=== PATIENT | female | born 1955 | race African-American/Black ===

== ENCOUNTER 2020-04-14 21:22 | Emergency (ER) | payer MEDICARE, MEDICAID | END 2020-04-14 22:20 | disposition home or self-care (01) | LOC: BURERS 21:22 | DX: R11.0 Nausea (principal); I10 Essential (primary) hypertension; F20.0 Paranoid schizophrenia; Z79.899 Other long term (current) drug therapy; Z79.82 Long term (current) use of aspirin | CPT/HCPCS: 99284 ==

== ENCOUNTER 2020-04-28 22:46 | Emergency (ER) | payer MEDICARE, OTHER ==
[2020-04-28 23:40] LABS: Bilirubin Large (Negative); Blood, Urine Trace (Negative); Clarity Slightly Cloudy (Clear); Glucose, Urine (Dipstick) 100 mg/dL (Negative); Ketone, Urine Trace mg/dL (Negative); Leukocyte Negative (Negative); Nitrite Negative (Negative); Protein, Urine (Dipstick) 30 mg/dL (Neg-Trace)
[2020-04-28 23:48] LABS: Hemoglobin 11.4 g/dL (12.0-16.0); Mean Corpuscular HGB CONC 30.5 g/dL (32.0-36.0); Mean Corpuscular Hemoglobin 26.2 pg (27.0-31.0); Mean Corpuscular Volume 86.1 fL (78.0-98.0); Mean Platelet Volume 7.7 fL (7.4-10.4); Platelet Count 324 thou/uL (130-400); RBC Distribution Width 15.7 % (11.5-14.5); Red Blood Cell (RBC) Count 4.34 mill/uL (4.20-5.40); White Blood Cell (WBC) Count 7.7 thou/uL (4.8-10.8)
[2020-04-28 23:51] LABS: Bacteria/HPF 1+ HPF (None Seen); RBC/HPF 0-3 HPF (0-3); Squamous Epithelial 0-3 HPF (0-3); WBC/HPF 0-3 HPF (0-3)
[2020-04-28 23:56] LABS: ALT (SGPT) 102 U/L (8-55); AST (SGOT) 107 U/L (5-34); Albumin 3.4 g/dL (3.4-4.8); Alkaline Phosphatase 1060 U/L (40-110); Anion Gap 16 mmol/L (10-20); BUN (Urea Nitrogen) 10 mg/dL (9.8-20.1); Calc. Creatinine Clearance 0 mL/min (70-130); Calcium 9.6 mg/dL (7.8-10.44); Carbon Dioxide 33 mmol/L (23-31); Chloride 93 mmol/L (98-107); Estimated GFR-MDRD Greater than 90; Globulin 3.5 g/dL (2.4-3.5); Glucose 125 mg/dL (80-115); Lipase 132 U/L (8-78); Magnesium 1.4 mg/dL (1.6-2.6); Potassium 2.5 mmol/L (3.5-5.1); Protein, Total 6.9 g/dL (6.0-8.3); Sodium 139 mmol/L (136-145)
[2020-04-28 23:58] LABS: #Basophils 0.1 thou/uL (0.0-0.2); #Eosinphils 0.2 thou/uL (0.0-0.7); #Lymphocytes 1.6 thou/uL (1.20-3.40); #Monocytes 0.5 thou/uL (0.11-0.59); #Neutrophils 5.4 thou/uL (1.40-6.50); %Basophils 0.9 % (0.0-1.0); %Eosinophils 2.3 % (0.0-10.0); %Lymphocytes 20.5 % (21.0-51.0); %Neutrophils 70.3 % (42.0-75.0); Anisocytosis SLIGHT = 6-15 cells (100X) (0-5/hpf); MDiff Complete? YES; Platelet Morphology Comment Appears Adequate; Poikilocytosis SLIGHT = 6-15 cells (100X) (0-5/hpf); Target Cells SLIGHT = 2-5 cells (100X) (0-1/hpf)
[2020-04-29] MEDS ORDERED: Potassium Chloride 20 MEQ TAB ONE (00:06)
[2020-04-29] MEDS ORDERED: Magnesium 2 GM/50 ML BAG (IN WATER) ONE (00:08)
[2020-04-29 00:29] LABS: INR-International Normal Ratio 1.3; Prothrombin Time 15.7 sec (12.0-14.7)
== END 2020-04-29 01:30 | disposition short-term general hospital (02) ==
LOC: BURERS 22:46
DX: E80.6 Other disorders of bilirubin metabolism (principal); R17 Unspecified jaundice; R74.8 Abnormal levels of other serum enzymes; E87.6 Hypokalemia; I10 Essential (primary) hypertension; F20.9 Schizophrenia, unspecified; Z79.82 Long term (current) use of aspirin; Z79.899 Other long term (current) drug therapy
CPT/HCPCS: 80053; 81003; 81015; 83690; 83735; 84443; 85025; 85610; 85730; 87086; 93005; 96361; 96365; 96368; J3475